=== PATIENT | female | born 1975 | race African-American/Black ===

== ENCOUNTER 2017-10-31 20:36 | Emergency (ER) | payer SELFPAY | END 2017-10-31 23:29 | disposition home or self-care (01) | LOC: ERS 20:36 | DX: B34.9 Viral infection, unspecified (principal); K21.9 Gastro-esophageal reflux disease without esophagitis; F41.9 Anxiety disorder, unspecified; F17.210 Nicotine dependence, cigarettes, uncomplicated; Z71.6 Tobacco abuse counseling | CPT/HCPCS: 87081; 87430; 99406 ==

== ENCOUNTER 2020-11-15 11:47 | Emergency (ER) | payer BC, SELFPAY ==
[2020-11-15 20:07] LABS: SARS-CoV-2 PCR by NAA Not Detected (NotDetected)
== END 2020-11-15 13:03 | disposition home or self-care (01) ==
LOC: ERS 11:47
DX: J01.90 Acute sinusitis, unspecified (principal); Z20.822 Contact with and (suspected) exposure to COVID-19; K21.9 Gastro-esophageal reflux disease without esophagitis; F17.210 Nicotine dependence, cigarettes, uncomplicated
CPT/HCPCS: 87635; 99283; U0003; U0005

== ENCOUNTER 2024-06-01 11:06 | Emergency (ER) | payer BC, SELFPAY ==
[2024-06-01] MEDS ORDERED: Ketorolac Tromethamine 30 MG (1 mL) VIAL ONE (12:40)
[2024-06-01] MEDS ORDERED: Acetaminophen 500 MG TAB ONE (12:40)
[2024-06-01 13:21] LABS: #Basophils 0.04 10x3/uL (0.0-0.2); %Basophils 0.3 % (0.0-1.0); %Eosinophils 0.4 % (0.0-10.0); %Lymphocytes 20.9 % (21.0-51.0); %Monocytes 7.5 % (0.0-10.0); %Neutrophils 70.5 % (42.0-75.0); Hematocrit 41.1 % (36.0-47.0); Hemoglobin 14.5 g/dL (12.0-16.0); Mean Corpuscular HGB CONC 35.3 g/dL (32.0-36.0); Mean Corpuscular Hemoglobin 31.9 pg (27.0-31.0); Mean Corpuscular Volume 90.5 fL (78.0-98.0); Mean Platelet Volume 10.7 fL (7.4-10.4); Platelet Count 280 10x3/uL (130-400); Red Blood Cell (RBC) Count 4.54 mill/uL (4.20-5.40)
[2024-06-01] MEDS ORDERED: predniSONE 20 MG TAB ONE (13:51)
== END 2024-06-01 16:38 | disposition home or self-care (01) ==
LOC: ERS 11:06
DX: M10.9 Gout, unspecified (principal); F17.210 Nicotine dependence, cigarettes, uncomplicated; I10 Essential (primary) hypertension; E11.9 Type 2 diabetes mellitus without complications
CPT/HCPCS: 83605; 84550; 85025; 86141; 96372; 99283; J1885; J7512